=== PATIENT | female | born 1970 | race Caucasian/White ===

== ENCOUNTER 2024-09-28 16:25 | Emergency (ER) | payer BC, SELFPAY ==
[2024-09-28 16:27] VITALS: BP 108/67
[2024-09-28 17:08] LABS: Lactic Acid 2.2 mmol/L (0.7-2.0)
[2024-09-28 18:13] VITALS: BP 119/54
[2024-09-28 18:20] VITALS: BP 119/54; BMI 22.1
--- NOTE | 2024-09-28 18:22 | ED.GENMED ---
History of Present Illness
General
Chief Complaint: Fever
Source: patient
Exam Limitations: none
Time Seen by Provider: 09/28/24 18:13
Nursing documentation reviewed up to this point in time: agreed with
History of Present Illness
History of Present Illness:
Patient is a 53-year-old female with past history of breast cancer who presents to the emergency department for evaluation after positive COVID test this morning. Patient states she started feel tired yesterday however woke up this morning with a
fever, nasal congestion, and cough. She took an at home COVID test which was positive. She contacted her oncologist who recommended she be seen in the emergency department for evaluation given her low white blood cell count found on outpatient
labs last week.
Patient denies any severe headache or neck pain. No chest pain or shortness of breath. She has a minimally productive cough. No vomiting.
Patient did take ibuprofen and Mucinex around 10 AM this morning with some improvement.
She states her lab work last week showed a white blood cell count of 2.4k with an absolute neutrophil count of 0.9.
Past History
Past History
ED Past Medical History: None
ED Past Surgical History: None
Social History
Tobacco: Non-smoker
Personal:
Living: with family
Family History
Family History: Diabetes, CAD and Cancer; Negative Asthma
Review of Systems
Review of Systems
Allergies reviewed?: Yes
All Other Systems: ROS reviewed and negative except as documented in HPI and ROS
Phy Exam
Physical Exam
Physical Exam:
Vitals: Patient's vital signs are stable. Afebrile
General: Patient is in no apparent distress
Skin: Warm and dry, no rashes or lesions
Head: Normocephalic, atraumatic
Eyes: Sclera nonicteric. EOMs intact. No nystagmus.
Throat: Protecting airway
Neck: Normal ROM, no cervical spine tenderness, no meningismus
Cardiac: Regular rate and rhythm, no murmurs.
Pulm: Normal respiratory effort, no wheezes, rales, rhonchi heard on exam. Frequent cough
Abdomen: Abdomen soft and nontender.
Extremities: No evidence of cyanosis or edema. Palpable DP pulses bilaterally
Neuro: AAOx3. Grossly intact.
Psychiatric: Normal affect.
Course
Orders/Labs/Results
Orders:
Orders
09/28/24 16:48
Lactic Acid Urgent
Blood Culture Urgent
PONCE Source: Blood/Venous
Specimen Description:
09/28/24 18:22
0.9% Sodium Chloride 1000 ml [Nss] 1,000 ml IV BOLUS
CR Chest - 2 Views Urgent
Comment: covid +
Reason For Exam: Fever, cough
09/28/24 18:49
Lorazepam [Ativan] 0.5 mg PO NOW STA
09/28/24 18:52
Complete Blood Count/With Diff Urgent
09/28/24 20:01
Comprehensive Metabolic Panel Urgent
Abnormal Lab Results
09/28/24 09/28/24 09/28/24
16:48 18:52 20:01
WBC 4.1 L 10^3/uL
(4.8-10.8)
MCH 33.4 H pg
(27.0-31.0)
MPV 10.9 H fL
(7.4-10.4)
Absolute Lymphs (auto) 0.7 L 10^3/uL
(1.2-3.4)
Lymphocytes % 18.0 L %
(20.5-51.1)
Monocytes % 9.7 H %
(1.7-9.3)
Chloride 113 H mmol/L
(98-107)
Lactic Acid 2.2 H mmol/L
(0.7-2.0)
09/28/24 18:52
09/28/24 20:01
Vital Signs
Initial and Last Documented VS:
Initial Vital Signs
Temp Pulse Resp BP Pulse Ox
98.8 F 70 16 108/67 100
09/28/24 16:27 09/28/24 16:27 09/28/24 16:27 09/28/24 16:27 09/28/24 16:27
Last Documented Vital Signs
Temp Pulse Resp BP Pulse Ox
98.4 F 65 14 119/54 99
09/28/24 18:20 09/28/24 19:45 09/28/24 19:45 09/28/24 18:20 09/28/24 19:45
MDM/Problems Addressed
Differential Diagnosis Includes:
Not limited to: Viral illness, acute bronchitis, pneumonia, leukopenia, etc.
MDM/Problems Addressed:
53-year-old female presents after positive at home COVID test this morning. She reports fever, nasal congestion, cough. She was referred given by her oncologist for further evaluation given her recent low white blood cell count on labs. Patient
has stable vital signs on arrival. Physical exam as above. She appears in no apparent distress. Heart regular rate and rhythm. Lungs clear bilaterally with frequent cough. Abdomen benign. Patient is perfusing well. Basic labs and lactic acid
sent in triage and are pending.
Overall impression is likely viral illness. Will obtain chest x-ray to rule out pneumonia however feel this is less likely. Patient declines any analgesia at this time and is currently afebrile.
Update: Labs reviewed. Mild leukopenia of 4.1 which is significantly increased from most recent lab results with a normal absolute neutrophil count. Chemistry without acute abnormalities however lactic acid was elevated to 2.2. I suspect this is
likely secondary to dehydration given no evidence of sepsis. Patient was given a full liter of IV fluids. Overall�patient remains nontoxic-appearing. Symptoms consistent with viral illness, COVID. No indication for admission today. Will
recommend supportive care at home and close monitoring of symptoms. Strict return precautions discussed. Patient comfortable with plan.
Chronic conditions affecting care:
History of breast cancer
Acute Exacerbation and/or Progression of Chronic Illness:
N/A
*Radiology
Radiology exam reviewed: preliminary read by ED provider (Chest x-ray reviewed by me-no acute abnormalities) and radiology read reviewed
*Pulse Oximetry
SaO2: 100
Oxygen Mode of Delivery: Room air
Patient hypoxic: no
*EKG
Interpreted by ED Provider?: NA
*Ham Stripper Interpretation
Rate: Ham Stripper- N/A
*Critical Care Note
Total Time (30-74mins, 75-104mins- exclusive of procedures): Not Applicable
ED Attending Note
-
Portions of this chart may have been created with voice recognition software.� Occasional wrong word or��sound alike� substitutions may have occurred due to the inherent limitations of voice recognition software.
Discharge Plan
Departure
Patient Disposition: Home (Routine Discharge)
Date of Disposition: 09/28/24
Time of Disposition: 20:52
Patient with high blood pressure during this ER visit?: No
Condition: Good
Covid-19: Confirmed COVID-19
Discharge Problem:
COVID-19
Instructions: Fever, Adult (DC), COVID-19 - ED discharge instructions
Prescriptions:
No Action
cetirizine 10 MG tablet
10 mg PO DAILY
Control
1 tab PO DAILY
Zoloft:
1 tab DAILY
hydrocodone-acetaminophen [Vicodin] 1 EACH tablet
1 ea PO Q6H PRN (Reason: pain) Qty: 15 0RF
psyllium husk [Metamucil Fiber (aspartame)] 1 PACKET powder in packet
1 packet PO DAILY Qty: 10 0RF
Referrals:
UNKNOWN - PT DOES,NOT KNOW [Family Provider]
Stand Alone Forms: Return to Work
Activity Restrictions/Additional Instructions:
RETURN TO THE EMERGENCY DEPARTMENT WITH ANY PERSISTENTLY ELEVATED FEVER, CHEST PAIN, SHORTNESS OF BREATH, PRODUCTIVE COUGH, SIGNIFICANT WEAKNESS, WORSENING CURRENT SYMPTOMS, OR ANY OTHER CONCERNS
- As discussed�I suspect your symptoms are likely related to your COVID infection. This is a virus and should resolve at home with supportive care. It is important stay very well-hydrated and get plenty of rest. You can take Tylenol and/or Motrin
as needed for fever/pain.
- There was no evidence of pneumonia on your chest x-ray today.
- Please follow-up with your primary care provider and oncologist for further evaluation/management to ensure that your symptoms are improving
Monitor your symptoms closely and return to the emergency department with any acute worsening/new symptoms or any other concerns
Interventions
Interventions:
*Risk Screen - Suicide Last Done: 09/28/24 16:29
*General Assessment Last Done: 09/28/24 18:20
*Neglect/Abuse Screening Last Done: 09/28/24 16:29
*ED- Fall Risk Assessment Last Done: 09/28/24 18:20
*ED COVID-19 Vaccine History Last Done: 09/28/24 18:20
*Nursing Disposition Last Done: 09/28/24 21:53
ED- Neurological Assessment Last Done: 09/28/24 18:20
ED-Skin Assessment Last Done: 09/28/24 18:20
Discharge Date and Time
Discharge Date/Time: 09/28/24 21:53
Print Language: VINCENTIAN
[2024-09-28] MEDS: NSS 1000 IV (18:46)
[2024-09-28] MEDS: ATIVAN 0.5 MG PO (18:52)
[2024-09-28 19:00] LABS: % Basophils 1.2 % (0-2); % Eosinophils 2.7 % (0-6); % Immature Granulocytes 0.2 % (0-0.5); % Monocytes 9.7 % (1.7-9.3); % Neutrophils 68.2 % (42.2-75.2); Absolute Basophils 0.1 10^3/uL (0-0.2); Absolute Eosinophils 0.1 10^3/uL (0-0.7); Absolute Lymphocytes 0.7 10^3/uL (1.2-3.4); Absolute Monocytes 0.4 10^3/uL (0.1-0.6); Absolute Neutrophils 2.8 10^3/uL (1.4-6.5); Hematocrit 43.5 % (37.0-47.0); Hemoglobin 15.2 g/dL (12.0-16.0); Mean Corp Hgb Conc. 34.9 g/dL (33.0-37.0); Mean Corpuscular Hgb 33.4 pg (27.0-31.0); Mean Corpuscular Volume 95.6 fL (81.0-99.0); Mean Platelet Volume 10.9 fL (7.4-10.4); Nucleated Red Blood Cells % 0 %; Platelet Count 156 10^3/uL (130-400); Red Blood Cell Count 4.55 10^6/uL (4.20-5.40); Red Cell Dist. Width 13.2 % (11.5-14.5); White Blood Cell Count 4.1 10^3/uL (4.8-10.8)
[2024-09-28 20:45] LABS: ALT (SGPT) 19 U/L (0-35); AST (SGOT) 26 U/L (14-36); Albumin 4.1 g/dl (3.5-5.0); Alkaline Phosphatase 64 U/L (38-126); Blood Urea Nitrogen 16 mg/dl (7-17); Calcium 9.1 mg/dl (8.4-10.2); Carbon Dioxide 23 mmol/L (22-30); Chloride 113 mmol/L (98-107); Estimated Creatinine Clearance 88 ml/min; Glucose 76 mg/dl (70-99); Potassium 4.3 mmol/L (3.5-5.1); Sodium 144 mmol/L (135-145); Total Bilirubin 0.4 mg/dl (0.2-1.3); Total Protein 6.6 g/dl (6.3-8.2); eGFR > 60.00
== END 2024-09-28 21:53 | disposition home or self-care (01) ==
LOC: EMR 16:25
PROVIDERS: Emergency Medicine; EMERGENCY PHYSICIAN Student in an Organized Health Care Education/Training Program
DX: U07.1 COVID-19 (principal); Z85.3 Personal history of malignant neoplasm of breast; R05.9 Cough, unspecified; R09.81 Nasal congestion
CPT/HCPCS: 99284; 96360; 71046; 80053; 83605; 85025; 87040